=== PATIENT | female | born 1955 | race Caucasian/White ===

== ENCOUNTER 2018-04-10 14:51 | Emergency (ER) | payer OTHER ==
[2018-04-10] MEDS ORDERED: Lidocaine 1%* 5 ML VIAL INJ ONE (16:11)
--- NOTE | 2018-04-10 16:26 | ED ---
Laceration/Wound HPI - HPI Summary HPI Summary: 62-year-old female who presents to the emergency department for a laceration to her right hand that occurred just prior to arrival. Patient states she was using a paring knife to cut an orange when accidentally slipped and cut her hand. States her last tetanus immunization was within 5 years. Symptoms are mild in severity. Touching wound makes symptoms worse. Rest makes symptoms better. No significant past medical history. - History of Current Complaint Stated Complaint: LT HAND LAC Time Seen by Provider: 04/10/18 16:10 Hx Obtained From: Patient Pain Intensity: 2 - Allergy/Home Medications Allergies/Adverse Reactions: Allergies Allergy/AdvReac Type Severity Reaction Status Date / Time No Known Allergies Allergy Verified 04/10/18 15:24 PMH/Surg Hx/FS Hx/Imm Hx Previously Healthy: Yes Musculoskeletal History: Denies: Hx Osteoporosis - Cancer History Hx Chemotherapy: No Hx Radiation Therapy: No - Immunization History Immunizations Up to Date: Yes Infectious Disease History: No Infectious Disease History: Reports: Traveled Outside the in Last 30 Days - Social History Occupation: Employed Full-time Lives: With Family Alcohol Use: Occasionally Substance Use Type: Reports: None Smoking Status (MU): Former Smoker Review of Systems Positive: Other - Right hand laceration All Other Systems Reviewed And Are Negative: Yes Physical Exam Triage Information Reviewed: Yes Vital Signs On Initial Exam: Initial Vitals Temp Pulse Resp BP Pulse Ox 98.4 F 79 16 148/90 97 04/10/18 15:16 04/10/18 15:16 04/10/18 15:16 04/10/18 15:16 04/10/18 15:16 Vital Signs Reviewed: Yes Appearance: Positive: Well-Appearing - Pt. sitting on bed in NAD. Skin: Positive: Warm, Dry Head/Face: Positive: Normal Head/Face Inspection Eyes: Positive: Normal Neck: Positive: Supple Musculoskeletal: Positive: Other - 1cm full thickness laceration noted to the right hand just below the MCP joint of second digit. Full ROM of digit. No tendon or muscle involvement. Neurological: Positive: Normal, CN Intact II-III Psychiatric: Positive: Affect/Mood Appropriate Procedures - Laceration/Wound Repair 1 Location: upper extremity - Right hand laceration Description: Linear Anesthesia: Local, 1.0% - 2cc Length, Depth and Shape: 1cm linear Betadine Prep?: No - hibiclens Laceration/Wound Explored: clean Closure: Single Layer Suture Type: Nylon - 4-0 Number of Sutures: 3 Layer Closure?: No Sterile Dressing Applied?: Yes Diagnostics - Vital Signs Vital Signs Temp Pulse Resp BP Pulse Ox 04/10/18 15:16 98.4 F 79 16 148/90 97 - Laboratory Lab Statement: Any lab studies that have been ordered have been reviewed, and results considered in the medical decision making process. Laceration Repair Course/Dx - Course Course Of Treatment: Pt. presenting for a simple hand lacerations. It was repaired as noted above. Tetanus is up-to-date. No tendon injury. Suture removal in 7-10 days. Keep the wound clean and dry. Return to the ear for redness, swelling or drainage from wound. Patient understands and agrees with plan. - Differential Dx Differental Diagnoses: Laceration - Clinical Impression Provider Diagnoses: Hand laceration Discharge - Sign-Out/Discharge Documenting (check all that apply): Patient Departure - Discharge Plan Condition: Good Disposition: HOME Patient Education Materials: Care For Your Stitches (ED), Laceration (ED) Referrals: Deny Villanueva MD [Primary Care Provider] - Additional Instructions: Suture removal in 7-10 days Keep wound clean and dry Return to ER for redness, swelling, or drainage from wound - Billing Disposition and Condition Condition: GOOD Disposition: Home
[2018-04-10 17:18] VITALS: BP 112/70
== END 2018-04-10 17:10 | disposition home or self-care (01) ==
LOC: ED 14:51
DX: S61.411A Laceration without foreign body of right hand, initial encounter (principal); W26.0XXA Contact with knife, initial encounter; Y93.G1 Activity, food preparation and clean up; Y92.9 Unspecified place or not applicable; Z87.891 Personal history of nicotine dependence
CPT/HCPCS: 12001; 99282

== ENCOUNTER → 2019-04-16 07:56 | Emergency (ER) | payer OTHER ==
[~2019-04-16 07:56] MED LIST: Acetaminophen TAB* 325 MG PO ONE
--- NOTE | 2019-04-16 08:22 | ED ---
Lower Extremity - HPI Summary HPI Summary: The patient is a 63 y/o F presenting to [facility] with a chief complaint of immediate onset pain in the right foot starting last night. She reports that she was paddle boarding from [id number] last night when she fell on the paddle board, causing her to hit the dorsal aspect of the foot and ankle on the board. There is ecchymosis on the dorsal foot and the medial aspect of the foot. She also notes that about a week and a half ago, she had a similar injury to the foot where she had scuba flippers on while trying to get on to a boat, and the flipper hit an edge that caused pain to the ventral foot at the plantar fascia and the right second toe with ecchymosis, to which she has been using tape to alleviate pain in the toe. She has taken Naproxen 500 mg at 0400 to some relief of the pain. The pain is aggravated by movement of the foot, especially plantarflexion, and there is tingling in the foot when she stands erect. The overall pain in the foot is currently rated 8/10 in severity. She denies any numbness in the foot, fever, chills, erythema of eyes, sore throat, CP, SOB, cough, abdominal pain, N/V, dysuria, hematuria, edema, rash, or dizziness. Hx of pins placed in the great toe of the right foot secondary to arthritis joint surgery. Former smoker, occasional EtOH, no substance use. - History of Current Complaint Chief Complaint: EDExtremityLower Stated Complaint: RIGHT FOOT INJURY PER PT Time Seen by Provider: 04/16/19 08:14 Hx Obtained From: Patient Mechanism Of Injury: Other - fell while using paddle board causing foot to hit board Onset of Pain: Immediate, Post Accident Onset/Duration: Still Present Severity Initially: Mild Severity Currently: Moderate Pain Intensity: 8 Pain Scale Used: 0-10 Numeric Timing: Lasting Hours Location: Is Discrete @ - right dorsal foot Character Of Pain: Aching Associated Signs And Symptoms: Positive: Other - ecchymosis on dorsal and medial aspects of foot Aggravating Factor(s): Ambulation, Movement - especially plantarflexion Alleviating Factor(s): Rest Able to Bear Weight: Yes - causes tingling in the foot Related History: Other - surgery in first right toe with pin placement - Allergies/Home Medications Allergies/Adverse Reactions: Allergies Allergy/AdvReac Type Severity Reaction Status Date / Time No Known Allergies Allergy Verified 04/10/18 15:24 PMH/Surg Hx/FS Hx/Imm Hx Endocrine/Hematology History: Denies: Hx Diabetes Cardiovascular History: Denies: Hx Hypertension Musculoskeletal History: Reports: Other Musculoskeletal History - bunions Denies: Hx Osteoporosis, Hx of Fracture(s) Opthamlomology History: Denies: Hx Legally Blind EENT History: Denies: Hx Deafness - Cancer History Hx Chemotherapy: No Hx Radiation Therapy: No - Surgical History Surgical History: Yes Surgery Procedure, Year, and Place: arthritis joint surgery/bunionectomy performed by Dr. Bashir Dailey at [facility] Infectious Disease History: No Infectious Disease History: Denies: Traveled Outside the [place] in Last 30 Days - Family History Known Family History: Negative: Hypertension, Diabetes, Renal Disease - Social History Alcohol Use: Occasionally Hx Substance Use: No Substance Use Type: Reports: None Hx Tobacco Use: Yes Smoking Status (MU): Former Smoker Review of Systems Negative: Fever, Chills Negative: Erythema Negative: Sore Throat Negative: Chest Pain Negative: Shortness Of Breath, Cough Negative: Abdominal Pain, Vomiting, Nausea Negative: dysuria, hematuria Positive: Myalgia - pain in the dorsal foot, ankle, and right second toe. Negative: Edema Positive: Bruising - on dorsal and medial aspect of right foot. Negative: Rash Neurological: Other - POSITIVE: tingling in the right foot (especially with standing); NEGATIVE: dizziness Negative: Numbness - in right foot All Other Systems Reviewed And Are Negative: Yes Physical Exam - Summary Physical Exam Summary: Constitutional: Well-developed, Well-nourished, Alert. (-) Distressed Skin: Warm, Dry HENT: Normocephalic; Atraumatic Eyes: Conjunctiva normal Neck: Musculoskeletal ROM normal neck. (-) JVD, (-) Stridor, (-) Tracheal deviation Cardio: Rhythm regular, rate normal, Heart sounds normal; Intact distal pulses; The pedal pulses are 2+ and symmetric. Radial pulses are 2+ and symmetric. (-) Murmur Pulmonary/Chest wall: Effort normal. (-) Respiratory distress, (-) Wheezes, (-) Rales Abd: Soft, (-) tenderness, (-) Distension, (-) Guarding, (-) Rebound Musculoskeletal: No tenderness at the base of the fifth metatarsal, Pain with plantarflexion, No tendernerss over the lateral or medial malleolus, No midfoot or forefoot tenderness, Right second toe is mildly tender to palpation (-) Edema Lymph: (-) Cervical adenopathy Neuro: Alert, Oriented x3 Psych: Mood and affect Normal Triage Information Reviewed: Yes Vital Signs On Initial Exam: Initial Vitals Temp Pulse Resp BP Pulse Ox 97.7 F 68 18 146/89 97 04/16/19 07:58 04/16/19 07:58 04/16/19 07:58 04/16/19 07:58 04/16/19 07:58 Vital Signs Reviewed: Yes Diagnostics - Vital Signs Vital Signs Temp Pulse Resp BP Pulse Ox 04/16/19 07:58 97.7 F 68 18 146/89 97 - Laboratory Lab Statement: Any lab studies that have been ordered have been reviewed, and results considered in the medical decision making process. - Radiology R Foot XR Radiology Interpretation Completed By: Radiologist Summary of Radiographic Findings: Impression: No evidence for fracture. ED physician has reviewed this report. R Ankle XR Radiology Interpretation Completed By: Radiologist Summary of Radiographic Findings: Impression: No evidence for fracture. ED physician has reviewed this report. Re-Evaluation - Re-Evaluation First Eval Re-Evaluation Time: 09:50 Comment: We discussed x-ray results and plan for discharge home. Lower Extremity Course/Dx - Course Course Of Treatment: Patient is a 63 y/o F with cc of immediate onset pain in the right foot starting last night after falling while using a paddle board, causing her to sustain ecchymosis and pain in the dorsal foot. Possible older injury to second right toe week and half ago after hitting on edge of boat while wearing scuba flippers. Pain worst with plantarflexion of foot but able to bear weight despite causing tingling in the foot. Surgical hx of pin placement in first right toe for bunionectomy/arthritic joint. Upon physical exam, the patient exhibits no tenderness at the base of the fifth metatarsal, pain with plantarflexion, no tenderness over the lateral or medial malleolus, no midfoot or forefoot tenderness, and right second toe is mildly tender to palpation. Right foot and ankle x-rays are negative for fracture. In the ED course, she was administered Tylenol for pain relief. She is diagnosed with ankle sprain, contusion of the right foot, and right second toe fracture. She was given crutches and placed in an aircast in the ED. She is advised to continue to use rosalie tape on the second right toe. She is given a referral to orthopedics as needed as well as a follow up with PCP in 2-3 days. She understands and agrees with this plan. - Diagnoses Provider Diagnoses: Right ankle sprain, Contusion of right foot, Fracture of second toe, right, closed Discharge - Sign-Out/Discharge Documenting (check all that apply): Patient Departure - Patient will be discharged home. Patient Received Moderate/Deep Sedation with Procedure: No - Discharge Plan Condition: Good Disposition: HOME Patient Education Materials: Ankle Sprain (ED), Toe Fracture (ED), Foot Contusion (ED) Referrals: Deny Villanueva MD [Primary Care Provider] - 3 Days Sg Aviles MD [Medical Doctor] - 3 Days Additional Instructions: We advise that you continue to rosalie tape the second right toe as you have been doing. Follow up with Dr. Aviles, orthopedics, as needed. Follow up with your primary care provider in 2-3 days. RETURN TO THE EMERGENCY DEPARTMENT FOR ANY NEW OR WORSENING SYMPTOMS. - Billing Disposition and Condition Condition: GOOD Disposition: Home - Attestation Statements Document Initiated by Prem: Yes Documenting Scribe: Alaina Jang Provider For Whom Prem is Documenting (Include Credential): Dr. Freddie Hudson MD Scribe Attestation: Alaina Harrington, scribed for Dr. Freddie Hudson MD on 04/16/19 at 3. Status of Scribe Document: Ready
[2019-04-16 10:07] VITALS: BP 142/63
== END | disposition home or self-care (01) ==
LOC: ED 07:56
DX: S92.501A Displaced unspecified fracture of right lesser toe(s), initial encounter for closed fracture (principal); S93.401A Sprain of unspecified ligament of right ankle, initial encounter; S90.31XA Contusion of right foot, initial encounter; Z87.891 Personal history of nicotine dependence; W19.XXXA Unspecified fall, initial encounter; Y93.19 Activity, other involving water and watercraft; Y92.9 Unspecified place or not applicable
CPT/HCPCS: 99282

== ENCOUNTER 2022-10-26 09:46 | Observation (INO) ==
[2022-10-26 14:26] LABS: ABS Basophils 0.1 10^3/ul (0-0.2); ABS Eosinophils 0.1 10^3/ul (0-0.6); ABS Lymphocytes 1.8 10^3/ul (1.0-4.8); ABS Monocytes 0.6 10^3/ul (0-0.8); ABS Neutrophils 3.8 10^3/ul (1.5-7.7); Eosinophil % 1.7 %; Hematocrit 39 % (35-47); Hemoglobin 12.5 g/dL (12.0-16.0); Mean Corpuscular HGB Conc 33 g/dL (31-36); Mean Corpuscular Hemoglobin 31 pg (27-31); Mean Corpuscular Volume 94 fL (80-97); Mean Platelet Volume 6.9 fL (7.4-10.4); Platelet Count 189 10^3/uL (150-450); Red Cell Distribution Width 14 % (10-15); White Blood Count 6.3 10^3/uL (3.5-10.8)
[2022-10-26 14:39] LABS: INR 0.99 (0.88-1.18)
[2022-10-26 15:18] LABS: Albumin/Globulin Ratio 1.6 (1-3); Calcium 9.1 mg/dL (8.6-10.3); Creatinine, Serum 0.87 mg/dL (0.51-0.95); Globulin 2.5 g/dL (2-4); Potassium 3.9 mmol/L (3.5-5.0); Total Bilirubin 0.6 mg/dL (0.2-1.0); Total Protein 6.5 g/dL (6.4-8.9)
[2022-10-26] MEDS ORDERED: Iohexol 350 (CONTRAST) 500 ML MDV IV ONE (15:26)
[2022-10-26 18:22] LABS: High Sensitivity Troponin 1 Hr 4 pg/mL (<15)
[2022-10-26] MEDS ORDERED: Heparin DRIP 25,000 UNITS BAG 25,000 UNITS/500 ML BAG IV SCH (18:45)
[2022-10-26] MEDS ORDERED: Heparin 5000 UNITS/ML 1 mL VIAL IV SCH (19:00)
[2022-10-26] MEDS ORDERED: Acetaminophen IV 1 GM/100ML 1,000 MG/100 ML BAG IV PRN (23:47)
[2022-10-27] MEDS ORDERED: Acetaminophen IV 1 GM/100ML 1,000 MG/100 ML BAG IV PRN (06:30)
[2022-10-27 08:40] VITALS: BP 128/78
== END 2022-10-27 10:45 | disposition home or self-care (01) ==
LOC: ED 09:46 → EDHOLD 09:46 → MEDTELE 22:42
PROVIDERS: ADMIT Hospitalist; ATTEND Hospitalist